=== PATIENT | female | born 1965 | race Caucasian/White ===

== ENCOUNTER 2022-11-03 10:12 | Day surgery (SDC) | payer OTHER ==
[~2022-11-03] VITALS: Ht 160.8 cm; Wt 90.7 kg
[2022-11-03] MEDS ORDERED: diphenhydrAMINE 50 MG/ML VIAL ONE (10:52)
[2022-11-03] MEDS ORDERED: fentaNYL citrate 0.05 MG/ML VIAL ONE (10:53)
[2022-11-03] MEDS ORDERED: MIDAZOLAM 5 MG/5 ML VIAL ONE (10:53)
[2022-11-03] MEDS ORDERED: LIDOCAINE 2% 100 MG/5 ML UJET TP ONE (10:54)
[2022-11-03] MEDS ORDERED: MIDAZOLAM 5 MG/5 ML VIAL IV ONE (11:55)
[2022-11-03] MEDS ORDERED: fentaNYL citrate 0.05 MG/ML VIAL IVP ONE (11:55)
== END 2022-11-03 12:05 | disposition home or self-care (01) ==
LOC: MDS 10:12 → MMU 10:13 → MDS 12:05
PROVIDERS: ATTEND Internal Medicine Gastroenterology
DX: Z12.11 Encounter for screening for malignant neoplasm of colon (principal); E11.9 Type 2 diabetes mellitus without complications; J45.909 Unspecified asthma, uncomplicated; E03.9 Hypothyroidism, unspecified; Z79.84 Long term (current) use of oral hypoglycemic drugs; Z79.899 Other long term (current) drug therapy
CPT/HCPCS: 45378; J2250; J3010; J1200